=== PATIENT | female | born 1975 | race Caucasian/White ===

== ENCOUNTER → 2016-09-12 | Outpatient (CLI) | payer OTHER | END | disposition home or self-care (01) | LOC: CFH 02:18 | PROVIDERS: ATTEND Neurological Surgery | DX: M47.812 Spondylosis without myelopathy or radiculopathy, cervical region (principal); G89.29 Other chronic pain | CPT/HCPCS: 72050 ==

== ENCOUNTER → 2016-12-19 | Outpatient (CLI) | payer OTHER ==
[2016-12-19 15:53] LABS: HEMATOCRIT 46.2 % (34.6-47.8); WHITE BLOOD COUNT 10.3 x10^3/uL (3.4-10)
[2016-12-19 16:05] LABS: PATH.CAST-FLAG NOT PRESENT; SPERM-FLAG NOT PRESENT; SRC-FLAG NOT PRESENT; XTAL-FLAG NOT PRESENT; YLC-FLAG NOT PRESENT
[2016-12-19 16:40] LABS: BLOOD UREA NITROGEN 16 mg/dL (7-18)
== END | disposition home or self-care (01) ==
LOC: STAR 14:29
PROVIDERS: ATTEND Neurological Surgery
DX: Z01.818 Encounter for other preprocedural examination (principal); R94.31 Abnormal electrocardiogram [ECG] [EKG]; M47.812 Spondylosis without myelopathy or radiculopathy, cervical region; R79.1 Abnormal coagulation profile
CPT/HCPCS: 36415; 71020; 80048; 81001; 85025; 85610; 85730; 87086; 93005

== ENCOUNTER → 2018-05-11 | Outpatient (CLI) | payer OTHER ==
[~2018-05-11] MED LIST: ACET325T14 PO; BUPR150T6 PO; DIAZ5TAB4 PO; GADOBUTROL 10 MMOL/10 ML PFS ONE; LEVO25TA4 PO; METH750T2 PO; OMEP40CA6 PO; TRAM50TA2 PO
== END | disposition home or self-care (01) ==
LOC: RAD 05-03 12:50
PROVIDERS: ATTEND Family Medicine
DX: G44.84 Primary exertional headache (principal)
CPT/HCPCS: 70544; 70553; A9585